=== PATIENT | female | born 1985 ===

== ENCOUNTER 2016-10-30 03:39 | Emergency (ER) | payer OTHER ==
[2016-10-30] MEDS ORDERED: DiphenhydrAMINE 50 mg/ml Inj ONE (03:47)
[2016-10-30] MEDS ORDERED: Sodium Chloride 0.9% 1,000 ML IV ONE (03:50)
[2016-10-30] MEDS ORDERED: DiphenhydrAMINE 50 mg/ml Inj IVP STA (03:51)
[2016-10-30 03:59] VITALS: PULSE 100; TEMP 98.5
--- NOTE | 2016-10-30 05:18 | C.PDOC ---
History Of Present Illness 31 year old female presents to the ED with complaints of itchy hives on face and extremities that have been intermittently since she gave on Friday October 21, 2016. Patient states overnight the symptoms worsened. Patient delivered a baby boy via without complications. She was seen by PMD, and given prednisone, benadryl and cortisone cream. Patient denies SOB, lip or tongue swelling, fever, chest pain, or sensation of throat closing up. Time Seen by Provider: 10/30/16 03:50 Chief Complaint (Nursing): Allergic Reaction History Per: Patient History/Exam Limitations: no limitations Onset/Duration Of Symptoms: Intermittent Episodes Current Symptoms Are (Timing): Worse Home/EMS Treatment: Benadryl, Other (hydrocortisone cream and prednisone) Severity: Moderate Past Medical History Reviewed: Historical Data, Nursing Documentation, Vital Signs Vital Signs: Last Vital Signs Temp 98.5 F 10/30/16 03:50 Pulse 100 H 10/30/16 03:50 Resp 17 10/30/16 06:29 BP 110/56 L 10/30/16 06:29 Pulse Ox 100 11/01/16 19:06 - Medical History PMH: No Chronic Diseases Family History: States: No Known Family Hx - Social History Hx Alcohol Use: No Hx Substance Use: No Review Of Systems Except As Marked, All Systems Reviewed And Found Negative. Constitutional: Negative for: Fever, Chills ENT: Negative for: Throat Swelling Cardiovascular: Negative for: Chest Pain, Palpitations Respiratory: Negative for: Cough, Shortness of Breath Gastrointestinal: Negative for: Nausea, Vomiting, Abdominal Pain, Diarrhea Skin: Positive for: Other (itchy hives on face and extremities) Physical Exam - Physical Exam Appears: Non-toxic, No Acute Distress, Other (actively scratching ) Skin: Warm, Dry, Rash (diffuse urticaria on face, torso, and extremities ) Head: Atraumatic Eye(s): bilateral: PERRL, EOMI Oral Mucosa: Moist Tongue: Normal Appearing, No Swelling, No Bite Lips: Normal Appearing, No Swelling Throat: Normal, No Erythema, No Exudate, No Drooling, Other (no stridor ) Neck: Supple Cardiovascular: Rhythm Regular Respiratory: Normal Breath Sounds, No Accessory Muscle Use, No Rales, No Rhonchi , No Wheezing Gastrointestinal/Abdominal: Normal Exam, Bowel Sounds, Soft, No Tenderness, No Guarding, No Rebound Extremity: Normal ROM, No Tenderness Neurological/Psych: Oriented x3 (speaking in full sentences ) ED Course And Treatment O2 Sat by Pulse Oximetry: 100 (room air ) Pulse Ox Interpretation: Normal Progress Note: Patient placed on cardiac technologist, given IV NS bolus, IV solumedrol, IV benadryl and IV pepcid. Reevaluation Time: 06:25 Reassessment Condition: Improved (Patient reassessed, is resting comfortably and symptoms have improved. Patient states she is feeling better. Vitals are WNL. Patient given rxs for prednisone (higher dose than prior), and patient instructed on how to taper the dose. She was instructed to follow up with her PMD in 1-2 days, and she understands she should return to ED if symptoms worsen. ) Disposition Counseled Patient/Family Regarding: Studies Performed, Diagnosis, Need For Followup, Rx Given - Disposition Referrals: Poly Mcgowan MD [Staff Provider] - Disposition: HOME/ ROUTINE Disposition Time: 06:25 Condition: STABLE Additional Instructions: FOLLOW UP WITH YOUR DOCTOR IN 1-2 DAYS USE PREDNISONE DIRECTED RETURN TO ER IF SYMPTOMS WORSEN Prescriptions: predniSONE [predniSONE Tab] 40 mg PO DAILY #8 tab Instructions: Urticaria (ED) Print Language: GREENLANDIC - POA Present On Arrival: None - Clinical Impression Clinical Impression: Urticaria - Scribe Statement The provider has reviewed the documentation as recorded by the Martyibmelly Crespo All medical record entries made by the Martyibmelly were at my direction and personally dictated by me. I have reviewed the chart and agree that the record accurately reflects my personal performance of the history, physical exam, medical decision making, and the department course for this patient. I have also personally directed, reviewed, and agree with the discharge instructions and disposition.
[2016-10-30 06:30] VITALS: BP 110/56; RESP 17
[2016-11-01 19:01] VITALS: O2SAT 100
== END 2016-10-30 06:29 | disposition home or self-care (01) ==
LOC: C.ER 03:39
DX: L50.9 Urticaria, unspecified (principal)
CPT/HCPCS: 96361; 96374; 96375; 99283; J1200; J2930; J7040